=== PATIENT | male | born 1935 ===

== ENCOUNTER 2017-06-15 10:42 | Inpatient (IN) | payer MEDICARE ==
[~2017-06-15] VITALS: Ht 157.4 cm; Wt 70.5 kg
--- NOTE | ~2017-06-15 | PR ---
[place], [place] PROGRESS NOTE NAME: [facility]ARRO [id number] UNIT #: [id number] ROOM: 315 DOCTOR: STEVE KENNEDY MD BIRTHDATE: [birth year] DOS: 06/18/2017 CHIEF COMPLAINT: "I am not how do you say it paranoid, people are really trying to get me. I have a beautiful 65-year-old girl, I want to ." HISTORY OF THE VISIT: The patient was interviewed in the dining area. He once again continued to perseverate about going back to [place], stating that he has a girl, he is going to there. He also is stating that he is not paranoid that multiple people are trying to hurt him and stop him from doing things. He repeated himself in a course of a 10-minute conversation, probably 5 times. He is very much on edge and labile and very much paranoid. MENTAL STATUS: He is alert and oriented to person, place, but not time. Mood seems labile. Affect is inappropriate. He is very paranoid and delusional. He does have a hard time processing and short term memory is exceedingly poor. PLAN: The patient is becoming episodically noncompliant with his medicine. He has had several doses of the Risperdal successfully without any sedation, somnolence, extrapyramidal symptoms or tardive dyskinesia. I will first switch him to the Risperdal M-Tab 1 mg twice a day and attempt to load with Risperdal Consta 12.5 mg IM now. I will increase his Exelon patch from 9.5 to 13.3 mg a day, continue to look for alternative placements. At this point, I would look to a locked assisted living facility that has a memory care unit as he would be appropriate for them, discharge then when stable. STEVE KENNEDY MD CM:PNTRANS [id number] STEVE KENNEDY MD 06/19/17 0244 interface
--- NOTE | ~2017-06-15 | DS ---
[place], [place] DISCHARGE SUMMARY NAME: [facility]ARR[id number] UNIT #: [id number] ROOM: 315 DOCTOR: STEVE KENNEDY MD BIRTHDATE: [birth year] DOS: 06/24/2017 CHIEF COMPLAINT: "There is conspiracy against me. I hope you are not in on it." HISTORY OF PRESENT ILLNESS: This is an 82-year-old white male who was sent here on an involuntary basis from [facility]. The patient had called the police stating that he believed there were children in his neighborhood that were trying to break into his home and drug and kill him. 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 He was quite bizarre. Police brought him to [facility] to be evaluated. Once at [facility], they found him to be increasingly confused, paranoid and disjointed and felt inpatient hospitalization was warranted. During the early part of his first day here, the patient was very fixated on the conspiracy theory believing that he was taken forcibly from [place] and brought here against his will. The patient did exhibit extremely poor short-term memory and was admitted now to rule out organic factors to re-stabilize on medication and to determine what the least restrictive environment would be post-discharge. PAST MEDICAL HISTORY: Remarkable for hyperlipidemia, hypertension, osteoarthritis, prostate cancer and rosacea. SUMMARY OF THE HOSPITAL COURSE: The patient was admitted to the unit where he was extremely confused with very poor short-term memory. He was very perseverative and was very resistive to any type of intervention. He was started initially on Risperdal 0.5 mg twice daily. Initially, he complied with this, but very quickly became paranoid about the medication, stating that we were a part of conspiracy and we were attempting to drug him. After several days of taking the oral Risperdal, the patient began refusing his oral medications. At this point, he was loaded with Risperdal Consta 12.5 that day. After receiving the injection, the patient did have a lessening of his conspiracy theory and he once again resumed taking the oral medication. Because of the significant cognitive impairment, he was started simultaneously on Exelon patch 4.6 mg a day and Namenda 5 mg a day. Both of these were rapidly titrated upward to their maximum or near maximum dose with the Exelon being brought to its highest dose of 13.3 mg daily and Namenda to 15 mg daily. As he progressed in his hospital stay, the patient well still perseverative and repetitive, was much easier to redirect. He stopped talking about [place] and stop talking about a conspiracy theory. In fact on the day of discharge, the patient, who was pushing to leave here on a daily basis, actually voiced a desire to stay here longer as he reports liking it here and liking the food and the people here. The patient had improved sufficiently during his stay that it was felt that he would do well at an assisted living facility where his medications and meals would be provided for him and he would have supervision during the day. The patient was discharged then to [facility] in [place], [place]. MENTAL STATUS AT DISCHARGE: The patient was alert and oriented to person, place, but not necessarily time. Mood was strongly trending towards euthymia [place], [place] DISCHARGE SUMMARY NAME: JAMIN PIZARRO UNIT #: [id number] ROOM: 315 DOCTOR: STEVE KENNEDY MD BIRTHDATE: [birth year] and affect was much more appropriate. The paranoia that was so prominent upon admission had dissipated significantly. There were no auditory or visual hallucinations, no delusions. Short term memory still remained increasingly poor. 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 PLAN: The patient is to be admitted to [facility] [place], [place]. All of his prescriptions have been printed and will be sent with him. I will follow him upon his admission there. STEVE KENNEDY MD CM:NORIS [phone] STEVE KENNEDY MD 06/24/17 1156 interface
--- NOTE | ~2017-06-15 | PR ---
[place], [place] PROGRESS NOTE NAME: [id number] UNIT #: [id number] ROOM: 315 DOCTOR: HERBERT COLÓN,MY BIRTHDATE: [birth year] DOS: 06/23/2017 ROOM NUMBER: [id number]. CHIEF COMPLAINT: "I have a home in [place]." SUMMARY OF THE VISIT: The patient was interviewed in dining area after finishing his breakfast. The patient said he wants to be discharged home and does not want to go to assisted living because "I have a home in [place]." States he "feels great" and "why am I abnormal?" The patient asked many questions during interview today. Denies suicidal thoughts. MENTAL STATUS: The patient is alert and oriented to person and place. Mood is trending towards euthymia. Affect is more appropriate. The patient is too delusion and paranoid at times. There are no symptoms of yasmine or hypomania. There are no auditory or visual hallucinations. PLAN: We will increase Namenda from 5 mg b.i.d. to 10 mg q.a.m. and 5 mg at bedtime to augment the effectiveness of Exelon patch, continue Risperdal as before, engage in individual and li milieu activity with continued support as before. MY DO HERBERT STEVE KENNEDY MD CM:PNHOSSEIN [id number] MY HERBERT COLÓN 06/23/17 1338 interface
--- NOTE | ~2017-06-15 | PR ---
[place], [place] PROGRESS NOTE NAME: JAMIN PIZARRO UNIT #: [id number] ROOM: 315 DOCTOR: SHAYNE CAICEDO,IMTIAZ BIRTHDATE: [birth year] DOS: CHIEF COMPLAINT: "I'm doing okay." SUBJECTIVE: The patient is seen this morning in dining area. He had his breakfast, which he liked very much, readily engaged in conversation, somewhat confused that is why he is here. States that he is okay. He has been taking his medicines, tolerating well, still wants to go to [place] after his discharge from here and that he repeated several times. States that he slept good and he has no other questions at present. MENTAL STATUS EXAMINATION: The patient is alert, awake, oriented to person, place and approximate to time. Fair eye contact. Speech, lots of perseverations, repeating the same. Mood trending towards euthymia, still some paranoid themes. No yasmine or hypomania noted. PLAN: The patient needs further stabilization, so we shall continue his medicines, continue his care and try and engage him in li milieu as he is more stable. IMTIAZ BELLA MD CM:AMANDA [phone] IMTIAZ BELLA MD 06/21/17 1131 interface
--- NOTE | ~2017-06-15 | WRIGHTHP ---
[place], [place] PATIENT HISTORY AND PHYSICAL EXAM NAME: JAMIN PIZARRO UNIT #: [id number] ROOM: 315 DOCTOR: STEVE KENNEDY MD BIRTHDATE: [birth year] DOS: 06/16/2017 INITIAL PSYCHIATRIC EVALUATION. CHIEF COMPLAINT: "There's a conspiracy against me, I hope you are not in on it. HISTORY OF PRESENT ILLNESS: This is an 82-year-old white male who was sent here on an involuntary basis from [facility]. The patient had called the police stating that he believed that children in the neighborhood were trying to break into his home trying to drug and kill him. 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 Police brought him to [facility] to be evaluated. Since his admission here, he has been fixated on a conspiracy theory believing that he was in [place] and he was taken from [place] here against his will. Of note, the patient's short term memory is exceedingly poor and he is bordered on being increasingly verbally and physically combative, but is held it together for the most part and self redirects. He is admitted now to rule out physical issues to engage in individual and li milieu activity and then determining the appropriate placement post-discharge. PAST MEDICAL HISTORY: Remarkable for hyperlipidemia, hypertension, osteoarthritis, prostate cancer and rosacea. MENTAL STATUS: He is alert and oriented to person, place, and approximate to time. Mood seems labile. Affect inappropriate. He is very paranoid and delusional. Short term memory is exceedingly poor. DIAGNOSIS: Brief psychotic disorder, rule out major depression with psychotic features, rule out dementia. PLAN: I have started him already on Risperdal 0.5 mg twice daily. I will maintain this. Given the cognitive loss, I will start him on Exelon patch. Engage in individual and li milieu activity. surgical services assistant will reach out to family to determine what are post-discharge plans will be. [place], [place] PATIENT HISTORY AND PHYSICAL EXAM NAME: JAMIN PIZARRO UNIT #: [id number] ROOM: 315 DOCTOR: STEVE KENNEDY MD BIRTHDATE: [birth year] STEVE KENNEDY MD CM:ROBERT:PATIENT HISTORY AND PHYSICAL EXAMINATION 5 9 STEVE KENNEDY MD 06/16/17 09 interface
--- NOTE | ~2017-06-15 | PR ---
[place], [place] PROGRESS NOTE NAME: JAMIN PIZARRO UNIT #: [id number] ROOM: 315 DOCTOR: STEVE KENNEDY MD BIRTHDATE: [birth year] DOS: 06/22/2017 CHIEF COMPLAINT: "Hey, I need to get out of here. I have places to go to." SUMMARY OF THE VISIT: The patient was interviewed in the dining area where he was sitting eating breakfast. Once again, he was preoccupied with leaving here to go to [place]. He was able to be dissuaded more readily this morning and is not as fixated. Nurses report similarly. He does seem to be more redirectable than he had been previously upon admission. He is tolerating the current regimen of medicines well. MENTAL STATUS: He is alert and oriented to person, place, but approximate to time. Mood does seem to be trending towards euthymia finally. Affect is more appropriate. There are no symptoms of yasmine or hypomania. There are no auditory or visual hallucinations. He does remain delusional. PLAN: At the present time, I will renew his Ativan p.r.n. in case he requires intervention. I will increase the Namenda from 5 mg daily to 5 mg twice daily augmenting the effectiveness of the Exelon patch. Engage in individual and li milieu activity. Maintain the Risperdal, monitor and support returning to the least restrictive environment when stable. STEVE KENNEDY MD CM:PNTRANS [id number] STEVE KENNEDY MD 06/22/17 1119 interface
--- NOTE | ~2017-06-15 | PR ---
[place], [place] PROGRESS NOTE [id number] UN[facility] #: [id number] ROOM: 315 DOCTOR: HERBERT COLÓN,MY BIRTHDATE: [birth year] DOS: 06/19/2017 CHIEF COMPLAINT: "May be you are playing games with me." SUMMARY OF THE VISIT: The patient was interviewed in his room. He said "it's 6 o'clock, not 8." He believes that he had only been out of [place] not too long ago. He said he has a girlfriend here, her name is Angelica and he is going to her. When asked if we could have her phone number, he said he doesn't want to give her phone number because he has to ask her for permission first. The patient states he does not need help, he can do everything himself and that he could get all his meals from [employer]. The patient said that "they want to get my car." According to staff, the patient told them that "people are out to get him." MENTAL STATUS: He is alert and oriented to person and somewhat place, but not time. Mood seems labile. Affect is inappropriate. The patient is very paranoid and delusional. He does have hard time processing information still. Short term memory is exceedingly poor. PLAN: Due to episodically compliant, the patient was started on Risperdal M-Tab 1 mg b.i.d. yesterday and had a loading dose of Risperdal Consta 12.5 mg. He will have another Risperdal Consta 12.5 mg on 06/20/2017, continue Exelon patch 13.3 mg. We will continue to engage the patient in individual and group activity. Currently working on finding a placement for him. MY GODINEZ, DO STEVE KENNEDY MD CM:PNTRANS [id number] MY HERBERT DO 06/22/17 0916 interface
--- NOTE | ~2017-06-15 | PR ---
[place], [place] PROGRESS NOTE NAME: [id number] UNIT #: [id number] ROOM: 315 DOCTOR: HERBERT COLÓN,MY BIRTHDATE: [birth year] DOS: 06/17/2017 ROOM NUMBER: [id number]. CHIEF COMPLAINT: "[place]." SUMMARY OF THE VISIT: The patient was interviewed in the dining area as he sat in a Sparkle chair. He opened his eyes and quickly returned back to sleep. He received Ativan last night for increased agitation and aggression. Staff reports the patient said "you are trying to kill me" and "I hope you burn in hell for tarnishing my good name." Throughout the night, the patient believed he was still in [place] and does not want to return to [place]. MENTAL STATUS: Unable to assess due to his condition. PLAN: We will increase Risperdal 0.5 q.a.m. and 1 mg at bedtime, also increase Exelon patch to 9.5 mg daily, continue Namenda 5 mg daily. We will continue to engage the patient in individual and li milieu activity with the ultimate plan is to be discharged when the patient is psychiatrically stable. MY HERBERT, DO STEVE KENNEDY MD CM:PNHOSSEIN [id number] MAGALI GODINEZ DO 06/17/17 1225 interface
--- NOTE | ~2017-06-15 | DS ---
[place], [place] DISCHARGE SUMMARY NAME: JAMIN PIZARRO UNIT #: [id number] ROOM: 315 DOCTOR: STEVE KENNEDY MD BIRTHDATE: [birth year] DOS: 06/25/2017 ADDENDUM CHIEF COMPLAINT: "Where am I going, what is wrong with me?" SUMMARY OF THE VISIT: The patient was interviewed as he sat in the dining area, interacting with two of the li milieu workers. He stopped and engaged readily in conversation with me. He was rather perplexed and bewildered, not quite certain why he was in the hospital in the first place and where he was going. I discussed at length what led to his initial hospitalization, how he progressed during his stay and how the plan now is for him to at least temporarily if not permanently go to [facility]. He required a great deal of support and redirection, but in the end did nod in approval that this is probably the best for him. MENTAL STATUS: The patient is alert and oriented to person, place, but not necessarily time. Mood is strongly trending towards euthymia. Affect is more appropriate. There is no yasmine or hypomania. There are no auditory or visual hallucinations. No delusions, no paranoia. He does process slowly and his short term memory is exceedingly poor. DIAGNOSIS: As per the dictation of 06/24/2017. DISPOSITION: The same. I will follow him when he is admitted to [facility]. STEVE KENNEDY MD CM:DISCHARG [id number] STEVE KENNEDY MD 06/25/17 1712 interface
--- NOTE | ~2017-06-15 | CON ---
[place], [place] REPORT OF CONSULTATION NAME: JAMIN PIZARRO UNIT #: [id number] ROOM: 315 DOCTOR: DANIEL BONILLA ED.D (ALLI) BIRTHDATE: [birth year] DOS: 06/16/2017 HISTORY OF PRESENT ILLNESS: The patient is an 82-year-old male referred by Dr. Encinas for competency evaluation. At the present time, this patient is on the [facility] at [facility]. He states he is single and never been and has no children. His ddonlf-am-eyy is his durable power of workers compensation attorney for healthcare. 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 He cannot remember his family physician, but his medical history is pertinent for hypertension, osteoarthritis, coronary artery disease, rosacea. He is presently on Risperdal, Exelon, vitamin D, multivitamins, aspirin, Proscar, lisinopril, magnesium hydroxide and Geodon. This patient denies any substance abuse issues. He was awake, alert and oriented only to person. He was not oriented to place or time. He initially believed he was in [place]. He believed that it was year 2009 or 2011 and could not discern the year. He was clearly quite confused throughout the interview. His short and long his long-term memory are impaired. I spoke with hhusmd-am-rke who is his durable power of workers compensation attorney for healthcare and she indicated that approximately 1 year ago, his memory started to fail. This was shortly after that time his brother , but his memory has progressively gotten worse throughout the year. He became quite delusional recently, was sent to [facility] and then [facility]. In my opinion, this patient is clearly not competent to make informed healthcare decisions and all decisions should be made by his healthcare power of workers compensation attorney who is his [id number]-cmd. DIAGNOSES: 1. Brief psychotic disorder. 2. Major neurocognitive disorder -- Alzheimer disease. RECOMMENDATIONS: In my opinion, all decision should be made by his healthcare power of workers compensation attorney. Thank you very much for this consult. DANIEL BONILLA ED.Bernardo CM:CONSTR:REPORT OF CONSULTATION [id number] 06/16/17 2148 interface STEVE ENCINAS MD
--- NOTE | ~2017-06-15 | PR ---
[place], [place] PROGRESS NOTE NAME: JAMIN PIZARRO [facility]AD[facility] CLINICT #: [id number] UNIT #: [id number] ROOM: 315 DOCTOR: SHAYNE CAICEDO,IMTIAZ BIRTHDATE: [birth year] DOS: CHIEF COMPLAINT: "Some kids were after me." SUBJECTIVE: The patient is 82-year-old male admitted with brief psychotic disorder and he was started on Risperdal. Today seen in his room. 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 MENTAL STATUS EXAMINATION: The patient is alert, oriented to person, place and approximate to time. Fair eye contact. Lots of perseverations, repeating the same. Labile mood, still paranoid about kids trying to harm him. No yasmine or hypomania at present. PLAN: The patient needs further stabilization. We shall continue his medicines and shall try to engage him in li milieu as he is more stable. IMTIAZ BELLA MD CM:AMANDA [id number] IMTIAZ BELLA MD 06/20/[id number] interface
--- NOTE | 2017-06-15 07:40 | NUR ---
DR. KENNEDY REVIEWED REFERALL WITH CHARGE NURSE, STATES HE WILL ACCEPT PT W/ DX: BRIEF PSYCHOTIC DISORDER.
--- NOTE | 2017-06-15 10:35 | NUR ---
PINK SLIP AND PRECERT INFORMATION RECEIEVED VIA FAX FROM . '. THIS NUSRE CALLED AND SPOKE TO DEMOND FIGUEROA, MADE AWARE ALL INFORMATION HAS BEEN RECIEVED AND THEY CAN SET UP TRANSPORT. [place] STATES SHE WILL HAVE NURSE CALL NURSE TO NURSE REPORT PRIOR TO TRANSPORT. THIS NURSE REQUESTED PT'S PHARMACY INFORMATION, [place] WILL HAVE NURSE CHECK AND LET US KNOW.
[2017-06-15] MEDS ORDERED: ZESTRIL20 MG PO (11:12)
[2017-06-15] MEDS ORDERED: PROSCAR5 M1 PO (11:13)
[2017-06-15] MEDS ORDERED: ASPIRIN CHEWABL81 MG PO (11:13)
[2017-06-15] MEDS ORDERED: THERAGRAN-M PR1 EACH PO (11:14)
[2017-06-15] MEDS ORDERED: VITAMIN D32000 UNIT PO (11:14)
[2017-06-15] MEDS ORDERED: SUPER B WITH V1 EACH PO (11:16)
[2017-06-15] MEDS ORDERED: CALCIUM 1,0001 EACH PO (11:18)
--- NOTE | 2017-06-15 11:40 | NUR ---
NURSE TO NURSE REPORT RECIEVED FROM MANOLO AT [facility]. MANOLO STATES PT IS UNABLE TO STATE PHARMACY. PER MEDICATION CLAIM HISTORY IN [employer], PT HAS FILLED SCRIPTS AT [facility] IN [place] [facility] - PER TECHINICIAN AT PHARMACY PT HAS FILLED TWO SCRIPTS IN 2016 FOR A 90 DAY SUPPLY, LISINOPRIL AND SODIUM CHLORIDE. NO OTHER SCRIPTS FOUND.
--- NOTE | 2017-06-15 11:43 | NUR ---
SPOKE TO DR. KENNEDY, MADE AWARE PER HOSPITAL RECORDS AND PT'S PHARMACY THERE ARE NO PSYCHIATRIC MEDICATIONS LISTED. NEW ORDERS RECEIVED, READ BACK AND VERIFIED.
--- NOTE | 2017-06-15 13:31 | NUR ---
NURSE FROM [facility] PROVIDED PT'S ECLDEC-SB-UXE'S NAME AND PHONE NUMBER: ANJELICA PIZARRO, . THIS NURSE SPOKE WITH ANJELICA, SHE STATES HER AND JAMIN WERE BROTHERS. ANJELICA STATES HER HAS THIS YEAR. ANJELICA ABLE TO REPORT THAT PT'S MOTHER HAD MULTIPLE HERNIA SURGERIES AND ULTIMATELY OF PERITONITIS. PT'S FATHER PASSED FROM COLON CANCER THAT METASTASIZED. ANJELICA REPORTS PT "IS A VERY PRIVATE PERSON. 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 HE KEEPS TO HIMSELF. HE DOESN'T CALL ME, I CALL HIM EVERY ONCE IN A WHILE TO CHECK UP ON HIM." SHE STATES HE HAD BEEN SEEING A RENAL DOCTOR, BUT QUIT GOING. SHE ALSO STATES HE HAS BEEN SHOWING S/S MEMORY LOSS, POSSIBLE DEMENTIA, BUT HAS NOT BEEN DX WITH DEMENTIA. SHE STATES THESE ISSUES HAVE BEEN GRADUALLY WORSENING OVER THE LAST 6 MONTHS. PHONE NUMBER TO UNIT PROVIDED FOR ANJELICA.
--- NOTE | 2017-06-15 13:37 | NUR ---
PER NURSE AT [facility], PT'S PRIMARY CARE DOCTOR IS DR. ALVAREZ HAND. CALL PLACED TO DR. HAND'S OFFICE, GEOSCIENCES ASSOCIATE PROFESSOR STATES DR. HAND IS NO LONGER IN PRACTICE. PER THEIR SYSTEM PT HAS NOT BEEN SEEN IN THAT OFFICE SINCE 2013 FOR A FLU SHOT. PER MEDICATION CLAIM HISTORY SCREEN, PT WAS PRESCRIBED SODIUM CHLORIDE SCRIPT BY A DR. YIP ([phone]), DR. YIP IS A PART OF [facility]" , CALL PLACED TO THIS OFFICE. STAFF REPORTS HE HAD BEEN SEEN THERE AFTER BEING REFERRED BY HIS PCP DR. FRANCISCO GARCIA ([phone]). STAFF AT [facility] REPORT HE WAS SEEN THERE 02/10/17 AND WAS SUPPOSED TO COME BACK FOR FOLLOW UP BUT "QUIT COMING BECAUSE HE GOT MAD. HE SAYS HE HAS TOO MANY DOCTORS". STAFF FAXED REPORT FROM LAST VISIT. CALL PLACED TO DR. GARCIA'S OFFICE, THEY CONFIRM IS A PATIENT OF THEIRS. HE WAS LAST SEEN IN THEIR OFFICE IN 2016, THEY WILL FAX HISTORY TO UNIT.
--- NOTE | 2017-06-15 13:54 | NUR ---
JAMIN PIZARRO a 82 year old M admitted via stretcher from the [facility] ED as a emergency 72 hr. hold admission. Arrived on unit at 1354. ALLERGIES: SULFA ATB. Vital signs are: 97.6-93-20 136/81. 93% ROOM AIR The client signed the following forms with stated understanding: Authorization For The Release of Medical Information, Clothing List, Consent and Release Forms/Receipt of Rights, Acknowledgement of Advance Directive Information, Behavioral Health Consent Form, and Informed Consent of Medications. [facility] A search was conducted and hazardous articles were removed. Client was oriented to the unit. KIMBERLEE GARBER
[2017-06-15 14:08] VITALS: BP 136/81
--- NOTE | 2017-06-15 14:10 | NUR ---
CALL PLACED TO [phone] FOR HOSPITALIST NUMBER ONE, SPOKE TO DR. CARTWRIGHT, MADE AWARE OF CONSULT FOR MEDICAL MANAGEMENT. MADE AWARE MEDICAL HX AND MED REC COMPLETE FOR REVIEW. DR. CARTWRIGHT STATES "OK THANK YOU."
[2017-06-15 14:36] VITALS: BP 136/81
--- NOTE | 2017-06-15 14:58 | NUR ---
PHYSICAL THERAPY Nursing screen recieved. No pertinent patient information in chart aT this time. Please order PT if appropriate. Thank you. Flora Arita,PT
--- NOTE | 2017-06-15 15:00 | NUR ---
JAMIN IS ALERT AND ORIENTED TO SELF WITH CONFUSION. SEVERE DEFICITS IN SHORT TERM MEMORY NOTED. RESPIRATIONS EASY AND EVEN ON ROOM AIR. MOOD IS ANGRY/IRRITABLE AND ANXIOUS. AFFECT IS APPROPRIATE. SPEECH IS COHERENT, ABLE TO VERBALIZE NEEDS, RAPID AT TIMES WITH FLIGHT OF IDEAS. PT DENIES SI/HI, STATES "NO. I LOVE MYSELF TOO MUCH.". PT DENIES HALLUCINATIONS, NO RESPONSE TO INTERNAL STIMULI NOTED. PT PRESENTS WITH PARANOID DELUSIONS, PT REPEATEDLY STATES HE HAS NO IDEA WHY HE IS IN THE HOSPITAL. HE STATES "I'M NOT CRAZY. THEY MUST THINK I'M NUTS IF THEY SENT ME HERE FOR PSYCHIATRY." PT STATES "THIS STORY IS TRUE. I'M NOT MAKING IT UP. HERE'S WHAT HAPPENED, THERE'S AN OLDER MAN IN [place] AND HE'S CONTROLLING ALL THESE YOUNG KIDS. 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 THEY KILL PEOPLE AND DUMP THEM IN A DEEP WELL." PT REPORTS "THESE KIDS, THEY KILLED MY GIRLFRIEND'S BROTHER. THE AUDITOR MEDICAL CLAIMS, HIS NAME IS RACHEAL, HE'S TRYING TO HELP ME. HE'S MY GIRLFRIEND'S UNCLE." PER [place] [employer] THERE IS NO OFFICER BY THE NAME OF RACHEAL WORKING THERE. PT STATES HE BELIEVES THIS GANG OF CHILDREN ARE HIS FORMER STUDENTS. HE ALSO REPORTS HIS GIRLFRIEND IS A FORMER STUDENT WHO HE MET AT HER BROTHER'S AND SHE IS 60 YEARS OLD. A FEW MOMENTS LATER HE STATES HE MET HIS GIRLFRIEND WHILE HE WAS WALKING IN [place] AND THAT SHE IS 50 YEARS OLD. PT'S STORY HAS CHANGED MULTIPLE TIMES T/O THE INTERVIEW. NO DISTRESS NOTED. FALLING STAR PROGRAM INITIATED D/T FALL RISK SCORE. UNSTEADY GAIT. Q15 MIN MONITORING CONTINUES. NO DISTRESS NOTED. REFER TO U ADMISSION ASSESSMENTS FOR FURTHER DOCUMENTATION.
--- NOTE | 2017-06-15 16:03 | NUR ---
DR. BLUNT HERE TO SEE PT AT THIS TIME. REASON FOR ADMISSION AND PT'S HX REVIEWED WITH DR. BLUNT.
[2017-06-15 16:24] LABS: BILIRUBIN NEGATIVE (NEGATIVE); BLOOD TRACE-INTACT (NEGATIVE); CLARITY CLOUDY (CLEAR); COLOR YELLOW (YELLOW); GLUCOSE NEGATIVE (NEGATIVE); KETONE NEGATIVE (NEGATIVE); LEUKO ESTERASE NEGATIVE (NEGATIVE); NITRITE NEGATIVE (NEGATIVE); UROBILINOGEN 0.2 E.U./dl (0.2-1.0)
[2017-06-15 16:33] LABS: BACTERIA 4+
[2017-06-15 16:43] LABS: BASO % 0.8 % (0.0-1.0); EOS # 0.1 10*3/uL (0.0-0.4); EOS % 1.8 % (1.0-4.0); HEMATOCRIT 47.1 % (42.0-52.0); HEMOGLOBIN 16.1 g/dl (14.0-18.0); LYMPH # 0.9 10*3/uL (1.3-4.4); LYMPH % 17.2 % (27.0-41.0); MEAN CELL VOLUME 98.1 fl (80.0-94.0); MEAN CORPUSCULAR HGB 33.5 pg (27.0-31.0); MEAN CORPUSCULAR HGB CONC 34.2 g/dl (33.0-37.0); MEAN PLATELET VOLUME 8.6 fl (9.6-12.3); MONO # 0.6 10*3/uL (0.1-1.0); MONO % 11.5 % (3.0-9.0); NEUT # 3.4 10*3/uL (2.3-7.9); NEUT % 68.5 % (47.0-73.0); PLATELET COUNT AUTOMATED 268 10*3/uL (130-400); RED CELL DISTRI WIDTH 12.6 % (0-14.5)
--- NOTE | 2017-06-15 16:54 | NUR ---
DR. CARTWRIGHT HERE TO SEE PT AT THIS TIME. UPDATED ON URINALYSIS RESULTS +4 BACTERIA, TRACE BLOOD, NO NEW ORDERS AT THIS TIME.
[2017-06-15 16:58] LABS: ALBUMIN 3.8 gm/dl (3.1-4.5); ALKALINE PHOSPHATASE 81 U/L (45-117); BUN 10 mg/dl (7-24); CHLORIDE 100 mmol/L (98-107); POTASSIUM 3.9 mmol/L (3.5-5.1); SGOT/AST 56 IU/L (3-35); SGPT/ALT 44 U/L (12-78); SODIUM 136 mmol/L (136-145); TOTAL PROTEIN 7.5 gm/dL (6.4-8.2)
--- NOTE | 2017-06-15 21:00 | NUR ---
EXTENSIVE 1-[address] AND LT MEMORY GAPS. VERY FIXATED ON WATCH, SHOES, WANTING TO PLACE INSOLES IN HIS SHOES. PT CURRENTLY THINKS THE YEAR IS 2013 AND THAT HE IS IN [place], [place] AGITATED THAT HIS ENTIRE VACATION WILL BE SPENT IN HERE, PT BECOMING HIGHLY AGITATED STATING THAT HIS CAREER WILL BE RUINED IF ANYONE FINDS OUT HE IS IN THE [place]. PT GAIT UNSTEADY AT THIS TIME FREQUENTLY REMOVING BODY ALARM AND STANDING. BECOMING INCREASINGLY AGITATED, UNABLE TO REORIENT TO PLACE AND TIME. PRN PO ATIVAN ADMINISTERED
[2017-06-15 21:36] VITALS: BP 147/79
--- NOTE | 2017-06-15 22:47 | NUR ---
PT CLIMBING OUT OF BED VERY DISORIENTED, YELLING AT STAFF "WHY ARE YOU DOING THIS TO ME, I'M GETTING OUT OF HERE" PT CLIMBED OUT OF RIGHT SIDE OF BED AND STUMBLED INTO WALL BEING CAUGHT BY THIS NURSE. UNABLE TO REORIENT PATIENT TO REALITY. PT PLACED IN MANOJ CHAIR CLOSE TO NURSES FOR INCREASED OBSERVATION.
--- NOTE | 2017-06-16 00:49 | NUR ---
PT CLIMBING OUT OF BED SOUNDING ALARMS. PT ASSISTED TO TOILET. PT THEN ATTEMPTED TO RUN WITH PANTS AROUND ANKLES ASKING STAFF " PLEASE DONT DO IT, PLEASE DONT HURT ME, I JUST WANT TO GO TO BED" PT REASSURED FOR SAFETY AND RETURNED TO BED AT THIS TIME
--- NOTE | 2017-06-16 00:59 | NUR ---
24 HR chart check completed.
--- NOTE | 2017-06-16 05:17 | NUR ---
SENDING FACILITY OBTAINED AUTH. BARAK APPROVED THROUGH 06/19/17 WITH REVIEW 06/19/17.
--- NOTE | 2017-06-16 07:01 | NUR ---
PT REFUSING AM LABS, ALERT TO PERSON ONLY UNABLE TO PRESENT REALITY. REFUSING TO GET IN TO CHAIR.
--- NOTE | 2017-06-16 08:10 | NUR ---
PHYSICAL THERAPY Nursing screen received. Orders also received. Thank you. Flora Arita,PT
--- NOTE | 2017-06-16 08:49 | NUR ---
06/15/17 Afternoon Group Emigdio Bowen Patient was admitted to floor just shortly after group began. Patient came to group at the end. Talk to patient about groups and what we do. Patient stated "I don't do things like that. The only thing I like to do is what TV." AC will encourage patient to attend all groups
[2017-06-16 08:58] VITALS: BP 140/78
[2017-06-16 10:08] LABS: THYROID STIM HORMONE (HS) 0.71 uIU/ml (0.358-4.75)
[2017-06-16 11:01] LABS: VITAMIN D, 25-HYDROXY 32.2 ng/mL (30-100)
--- NOTE | 2017-06-16 11:25 | NUR ---
PHYSICAL THERAPY PAtient with public health social worker and family in meeting. Thank you for this referral. Flora Arita,PT
--- NOTE | 2017-06-16 13:26 | NUR ---
Goals,Exercise & Wreaths Patient was in attendence for group but refused to participate. Patient states he doesnt do "those things." Patient talked with staff, mainly milieu. Encouraged patient throught group to join but continued to refuse
--- NOTE | 2017-06-16 13:30 | NUR ---
OT EVALUATION COMPLETED. OT MINIMAL COMPLEXITY DETERMINED BY OT EVAL AND CHART REVIEW. OT EVALUATION LATE ENTRY, FORGOT TO ENTER AFTER COMPLETION ON 06/16/17.
--- NOTE | 2017-06-16 14:40 | NUR ---
Dr. Encinas gave approval for Dr. Kelly consult for competency. DEMOND let Nurse Urszula know and a consult and phone call was put in to Dr. Kelly.
--- NOTE | 2017-06-16 14:52 | NUR ---
PHYSICAL THERAPY PAtient evalauted on 3, full evaluation to follow. Contineu with PT as per plan of care with fall, unit three and acute debility precautions. PAtient is moderate complexity via chart review, tests and evaluation: 20595. Home with home health versus SNF for impaired mobility. Thank you for this referral. Flora Arita,PT
--- NOTE | 2017-06-16 15:18 | NUR ---
Painting [place] Ornaments Patient was in attendence for group but did not participate. Again I encouraged patient to participate but he refuses each time saying he doesnt do "stuff like that." Patient sat at another table 1:1 with a milieu
--- NOTE | 2017-06-16 17:05 | NUR ---
PRN 1 MG PO ATIVAN GIVEN FOR INCREASED ANXIETY, PT HARD TO REDIRCT, DELUSIONAL STATEMENTS THNKS HE LIVES IN [place], THNKS [place] STAFF IS POISONING HIM, HE PUT CURSES ON THE STAFF AND MILEU, AND ALL THE STAFF'S FAMILILES. DR BONILLA UP TO EVALUATE FOR COMPETENCY. PT IS INCOMPETANT PER DR BONILLA. JAIME NOTIFIED THIS NURSE PT SISTER ANJELICA IS POA AND WILL FAX PAPERWORK TOMORROW TO THIS [facility]
--- NOTE | 2017-06-16 17:40 | NUR ---
ANGUS AWARE OF PT UA RESULTS
[2017-06-16 20:00] VITALS: BP 140/69
--- NOTE | 2017-06-16 20:50 | NUR ---
PT INCREASING AGITATED, SCREAMING AT NURSING STAFF, "YOU'RE TRYING TO KILL ME, I HOPE YOU BURN IN HELL FOR TARNISHING MY GOOD NAME". PT REMOVED FROM DINING ROOM. UNABLE TO REORIENT PT PT PLACE AND TIME. PRN IM ATIVAN ADMINISTERD. PT WALKED THROUGH DEEP BREATHING EXERCISES.
--- NOTE | 2017-06-16 21:30 | NUR ---
PT CONITNUES TO BE AGITATED AT THIS TIME, PT PROVIDED FOOR FLUIDS, REPOSITING AND TOILITING. PT POCKETING MEDS IN MOUTH AT HS MED PASS, HIDDEN UNDER TONGUE. PT GIVEN ADDITIONAL GLASSES OF WATER. MEDICATIONS SWALLOWED. PRN IM ATIVAN INEFFECTIVE. PROVIDED DECREASED STIMULATION IN QUIET ROOM WITH INCREASED OBSERVATION AT THIS TIME.
--- NOTE | 2017-06-16 22:00 | NUR ---
PT INCREASING IN AGITATION AND CONFUSION "I DONT WANT TO GO BACK TO [place], I WANT TO STAY IN [place]". UNABLE TO REORIENT OR CALM PT WITH 1-1, DEEP BREATHING EXERCISES INEFFECTIVE. PRN ZELDADON ADMINISTERED
--- NOTE | 2017-06-16 22:59 | NUR ---
SLIGHT DECREASE IN AGITATION AND COMBATIVENESS PT REMAINS IN [place] CHAIR FOR SAFETY ACROSS FROM NURSES STATION.
--- NOTE | 2017-06-17 06:57 | NUR ---
PT SLEPT 5 HOURS WITH FEW INTURRUPTIONS. PT CONTINENT AND INCONTINENT OF URINE. HYGIENE CARE PROVIDED.
--- NOTE | 2017-06-17 06:57 | NUR ---
24 HR chart check completed.
--- NOTE | 2017-06-17 07:29 | NUR ---
Ivania spoke with pt. williams Thomas who states she is pt's poa and will fax a copy of the paperwork today to the unit. IVANIA informed Nurse Urszula of this. Martha is requesting that referrals be sent out to [place] places so that pt. does not return directly to his home alone.
[2017-06-17 08:00] VITALS: BP 139/67
--- NOTE | 2017-06-17 08:36 | NUR ---
DEMOND spoke with Nurse Monterroso in regards to pt MARIA GUADALUPE faxing poa paperwork today and to make sure that poa gives verbal consent for tx due to pt. being admitted on a "pink slip".
--- NOTE | 2017-06-17 08:41 | NUR ---
Occupational Therapy order written 06/15/17 but not received. Nursing screen completed 06/17/17 when order discovered. OT evaluation will be completed this date as patient able. Caro Polk OTR/L
--- NOTE | 2017-06-17 09:25 | NUR ---
Occupational Therapy offered this date. Patient reported in a firm manner "please leave me lone". OTR will attempt at a later time. Caro Polk OTR/L
--- NOTE | 2017-06-17 10:11 | NUR ---
pt Jessa states that she will bring the pattie paperwork tomorrow at 12:30 when she and pt. nephew will be here to visit and meet with the DEMOND.
--- NOTE | 2017-06-17 10:11 | NUR ---
ANGUS NEFF ON UNIT TO SEE PATIENT
--- NOTE | 2017-06-17 10:53 | NUR ---
PHYSICAL THERAPY Jamin seen this AM 1:1 for his therapy treatment. Pt said NO and please leave, didnot want his therapy gait. JAMIN ENNIS MATH COACH.
--- NOTE | 2017-06-17 11:24 | NUR ---
[place] completed and faxed to [facility]. Sw sent out referrals to: Josep oliveira [facility], Josep oliveira [facility], Bl[facility] [place] and Joon of [place]. SW also sent out referrals to [place] if pt. would need ST SNF stay. [place] were sent out to: Trisha davis/[facility], LETICIA Hart, Audrey Hutchins of [facility], and [facility].
--- NOTE | 2017-06-17 11:54 | NUR ---
SW attempted to meet with pt. pt. irritable and said "no I don't want to talk".
--- NOTE | 2017-06-17 12:00 | NUR ---
Dana Hart states "We will forward it to [facility]" for possible admission per Domingo Velasquez.
--- NOTE | 2017-06-17 13:31 | NUR ---
Goals,Exercise and David Craft Patient was in attendence but refused to participate. Patient stated "You're just trying to trick me." x3 when asked to participate. Patient sat at table with group but was aggitated because he wanted to go home. Unable to redirect patient
--- NOTE | 2017-06-17 13:53 | NUR ---
PATIENT ALERT WITH CONFUSION. RESPIRATIONS NONLABORED. NO RESPIRATORY DISTRESS NOTED. MEMORY DEFICITS OF ST/LT MEMORY. PATIENT NOOD ANGRY, IRRITABLE, AND ANXIOUS. SUSPICIOUS AFFECT. THOUGHT PROCESS CONFUSED. PATIENT DELUSIONAL AT TIMES AND STATES THAT STAFF IS "GOING TO KILL ME". NO HALLUCINATIONS OR DELUSIONS. NO HOMICIDAL OR SUICIDAL IDEATIONS. PATIENT AGITATED, RESTLESS, AND DEMANDING AT TIMES. PATIENT YELLING OUT AT TIMES AND WHEN APPROCHED BY STAFF PATIENT FORGETTING WHY HE WAS YELLING. CONTINENT OF BOWEL AND BLADDER. PATIENT AMBULATORY TO BATHROOM. APPETITE FAIR. PATIENT IN GERICHAIR AND REPOSITIONED FOR PRESSURE RELIEF AND COMFORT. PATIENT WITH COGNITIVE IMPAIRMENT AND NEW ORDERS FOR MEDICATIONS GIVEN TODAY. NAMENDA 5MG Q DAY, RISPERDAL 1MG QHS, AND RISPERDAL 0.5MG Q DAY. CONTINUES FALL RISK WITH Q 15 MINUTE CHECKS MAINTAINED. SEE [facility] FLOW SHEET FOR SPECIFIC MONITORING
--- NOTE | 2017-06-17 14:00 | NUR ---
Patient declined Occupational Therapy evaluation this pm stating that he was too tired. OTR will attempt at a later date. Caro Polk OTR/Shantal
--- NOTE | 2017-06-17 14:05 | NUR ---
Rec'd call from Gloria Lucero at [facility] who states that she does have bed possibly available if the person doesn't take it tomorrow. DEMOND will discuss with williams tomorrow this possibility and will give her the number for a tour if she wants it.
--- NOTE | 2017-06-17 19:41 | NUR ---
TONE RAHMAN WITH VERBAL CONSENT FOR VOLUNTARY ADMISSION TO [facility] AND CONSENT FOR PHOTOGRAPHS. VERIFIED/WITNESSED WITH 2 NURSE TELEPHONE ORDER
[2017-06-17 20:00] VITALS: BP 138/69
--- NOTE | 2017-06-18 01:32 | NUR ---
MEDICATION COMPLIANT. ALERT TO PERSON. PLEASANTLY CONFUSED. PT ASKED IF STAFF WAS PLAYING A GAME WITH HIM ON MULTIPLE OCCASSIONS. WHEN ASKED ABOUT THIS GAME PT STATED "ARE YOU PLAYING A PRANK ON ME". EXPLAINED TO PT WHAT WAS GOING ON AND ATTEMPTED TO REORIENT INEFFECTIVE. NO COMBATIVENESS NOTED. NO HALLUCINATIONS OR DFELUSIONS NOTED. NON COMPLIANT WITH BED/BODY ALARMS. PT WILL UNHOOK, TURN OFF, AND UNCLIP ALARMS TO GO TO THE BATHROOM BY HIMSELF. EDUCATION PROVIDED ON ON MEDICATIONS AND HOW TO PULL THE ALARM FOR HELP. Q15 MINUTE SAFETY CHECKS MAINATINED. FALL SAFETY MAINTAINED. SEE [facility] FLOWSHEET FOR SPECIFIC MONITORING.
--- NOTE | 2017-06-18 07:20 | NUR ---
Patient approached for Occupational Therapy evaluation this am. He was seated at edge of bed and continued to repeat "get out of here". He was clearly disoriented to place and unable to be reoriented. OTR will attempt at another time. Caro Polk OTR/Shantal
--- NOTE | 2017-06-18 07:26 | NUR ---
pt slept 8 hours this shift with 3 interruptions to use restroom. no s/s of distress noted. no c/o pain. see [facility] flowsheet for specific monitoring.
[2017-06-18 08:58] VITALS: BP 132/71
--- NOTE | 2017-06-18 09:27 | NUR ---
JAMIN IS ALERT AND VOICING PARANOID DELUSIONS THIS MORNING UPON INTERACTIONS. EYE SCANNING NOTED DURING CONVERSATION. THIS RN WALKED INTO ROOM, INTRODUCED SELF, AND PATIENT REPLIED "YOU'RE ANOTHER ACTRESS I SEE." PATIENT VERBALIZED HE THINKS EVERYONE IS TRYING TO "TAKE MY CONDO" AND "OUT TO GET ME." EMOTIONAL SUPPORT PROVIDED WITH NO EFFECT. PRESENTING REALITY ONLY AGITATED JAMIN MORE. REFUSED MEDICATIONS AFTER MULTIPLE ATTEMPTS MADE, STATES "GET THOSE AWAY FROM ME, I'M NOT TAKING ANYTHING YOU GIVE ME. I DON'T KNOW WHAT THOSE ARE OF WHAT YOU'RE TRYING TO GIVE TO ME." MEDICATION EDUCATION PROVIDED WITH NO EFFECT. PATIENT PUSH MED CUP AWAY FROM HIM. PERSONAL SPACE GIVEN AT THIS TIME. PATIENT RESTING IN BED AT THIS TIME. RESPIRATIONS EASY AND EVEN ON ROOM AIR.
--- NOTE | 2017-06-18 10:17 | NUR ---
PHYSICAL THERAPY Jamin was seen this AM 1:1 for his therapy session, Pt was supine in bed. Jamin ask me how did i get in here and to leave, Pt not wanting his therapy no gait and just leave. JAMIN ENNIS STOCK DIGGER.
--- NOTE | 2017-06-18 11:23 | NUR ---
Goals,Exercise & [place] Trivia Patient did not attend group. Patient was in his room and when patient was encouraged to come to group patient refused stating he wanted his breakfast first. Patient encouraged to join after breakfast,patient did not
--- NOTE | 2017-06-18 12:02 | NUR ---
SW rec'd call from [facility], they cannot meet the pt's needs.
--- NOTE | 2017-06-18 12:29 | NUR ---
POA IN AT THIS TIME AND STATES OK TO GIVE RISPERDAL CONSTA INJECTION, WITNESSED BY DEMOND SAINZ.
--- NOTE | 2017-06-18 12:36 | NUR ---
Met abisai pt, Carlotta and poa and nephew for family session. pt.. remains paranaoid and states "Those kids were tearing up my house, this place is a hoax". pt. pattie gave permission for an IM of risperdol for pt. due to pt. refusing to take mned's, feeling paranaoid and that "I am being drugged". SW asked that items from lock box be brought up to unit., so that poa can get the keys out to pt's home in order for poa to get in check on pt's condo and get some clothes to bring down for pt.
--- NOTE | 2017-06-18 12:39 | NUR ---
Gloria Dupree called and asked if pt poa interested in their facility, states that may have one apt. open if so. SW to call Gloria and let her know fanny because they have another candidiate for possible admission. SW will discuss with family members before they leave after their visit today.
--- NOTE | 2017-06-18 13:08 | NUR ---
RISPERDAL CONSTA 12.5MG IM ADMINISTERED IN RIGHT DELTOID AT THIS TIME. PT TOLERATED INJECTION WELL AND DENIES ANY PAIN. EATING LUNCH IN DINNING ROOM AT THIS TIME.
--- NOTE | 2017-06-18 13:41 | NUR ---
DEMOND met with pattie again and discussed placement options. Gave poa address and phone number to [facility], who at this point in time is the only place that has called and may have an opening. pattie did take pt's keys with Deangelo, Kitchen Help Handyman witjuanessing it and will bring pt. some of his belongings. poa and pt nephew both upset in regards to his decline in mnetal status but understand that pt has a diagnosis of Dementia and the paranoia may or may not go away.pattie to tour [facility] and call DEMOND with her thoughts about placement there.
[2017-06-18 20:00] VITALS: BP 148/68
--- NOTE | 2017-06-18 20:23 | NUR ---
PT TEMP CHECKED AND WAS 100.2. PT SITTING IN A WARM DININGROOM. REMOVED PT AND HAD HIM SIT IN A COOLER ROOM. RECHECKED TEMP WITH RESULTS OF 99.3. NURSING SURVEY ENGINEER CALLED IN TO UNIT AND WAS UPDATED ON ELEVATED TEMP. CALLED RESIDENT SPECIAL EFFECTS TECHNICIAN NUMBER AND UPDATED DR ON TEMP RESULTS. DR STATED HE WOULD PUT IN AN ORDER FOR LABS IN THE AM. WILL MONITOR ELEVATEMP AND NOTIFY DR IF ANY FURTHER CHANGES.
--- NOTE | 2017-06-18 20:46 | NUR ---
PRN TYLENOL GIVEN FOR ELEVATED TEMP. PT UP AD NEFTALI WITH A WHEELED WALKER. ALERT AND ORIENTED TO PERSON ONLY. PLEASANTLY CONFUSED. NO PARANOIA NOTED AT THIS TIME. SITTING IN DININGROOM WAITING ON FOOTBALL GAME TO START. FLUID INTAKE OF 240ML AT THIS TIME. NO S/S OF DISTRESS NOTED. NO C/O PAIN. WILL CONTINUE TO MONITOR ELEVATED TEMP AND FOR CHANGE IN CONDITION.
--- NOTE | 2017-06-18 21:57 | NUR ---
RECHECK TEMP WITH RESULTS OF 98.9 T. PT ON KNEES NEXT TO FOOT OF BED. PRAYING. THIS NURSE TALKED TO PT AND PT STATED HE PRAYS TO [facility] EVERY DAY FOR OVER 20 YEARS BECAUSE THEY HELPED HIS NIECE AND NEPHEW. PT STATED PEOPLE ARE OUT FOR HIM BECAUSE HE HAS A PLANE TICKET FOR [employer] AND A GROUP OF PEOPLE HAD TICKETS BUT THEY NEEDED ONE MORE AND THEY WANTEED HIS. WILL CONTINUE TO MONITOR TEMP THROUGH OUT THE NIGHT.
--- NOTE | 2017-06-19 00:39 | NUR ---
RECHECK TEMP WITH RESULTS OF 97.9. NO S/S OF DISTRESS NOTED. NO C/O PAIN.
--- NOTE | 2017-06-19 00:47 | NUR ---
24 HR chart check completed.
[2017-06-19 05:33] LABS: BUN 13 mg/dl (7-24); CHLORIDE 100 mmol/L (98-107); CREATININE 0.57 mg/dL (0.70-1.30); POTASSIUM 3.4 mmol/L (3.5-5.1); SODIUM 133 mmol/L (136-145)
--- NOTE | 2017-06-19 05:50 | NUR ---
PT SLEPT APPROXIMATELY 6 HOURS UNINTERRUPTED THIS SHIFT. FALL PRECAUTIONS MAINTAINED. Q15 MINUTE SAFETY CHECKS MAINATINED. ALERT TO PERSON WITH CONFUSION NOTED. ANXIOUS AT TIMES. PARANOID THAT PEOPLE ARE OUT TO GET HIM AND TAKE A PLANE TICKET TO [place] FROM HIM. INTERACTIVE WITH STAFF. RESTLESS AT TIMES. NO FURTHER ELEVATED TEMPS NOTED. SEE [facility] FLOWSHEET FOR SPECIFIC MONITORING. PLAN IS TO CONTINUE WITH CURRENT TREATMENT PLAN AND ENCOURAGE PARTICIPATION IN GROUPS AND ACTIVITIES. NO S/S OF DISTRESS OR PAIN NOTED.
[2017-06-19 06:00] LABS: BASO % 0.7 % (0.0-1.0); EOS # 0.2 10*3/uL (0.0-0.4); EOS % 3.9 % (1.0-4.0); HEMATOCRIT 38.6 % (42.0-52.0); HEMOGLOBIN 13.3 g/dl (14.0-18.0); LYMPH # 1.5 10*3/uL (1.3-4.4); LYMPH % 27.4 % (27.0-41.0); MEAN CELL VOLUME 97.2 fl (80.0-94.0); MEAN CORPUSCULAR HGB 33.5 pg (27.0-31.0); MEAN CORPUSCULAR HGB CONC 34.5 g/dl (33.0-37.0); MEAN PLATELET VOLUME 9.1 fl (9.6-12.3); MONO # 0.9 10*3/uL (0.1-1.0); MONO % 16.5 % (3.0-9.0); NEUT # 2.9 10*3/uL (2.3-7.9); NEUT % 51.1 % (47.0-73.0); PLATELET COUNT AUTOMATED 206 10*3/uL (130-400); RED BLOOD COUNT 3.97 10*6/uL (4.50-5.90); RED CELL DISTRI WIDTH 12.3 % (0-14.5); WHITE BLOOD COUNT 5.6 10*3/uL (4.8-10.8)
[2017-06-19 07:56] VITALS: BP 143/67
--- NOTE | 2017-06-19 09:00 | NUR ---
DEMOND spoke with Alexandria of [facility]. Referral had been sent to this facility. Alexandria was concerned that pt. may need IM medications upon d/c but DEMOND clarified that Dr. Encinas is hoping that pt. will "clear" by Thursday and not need IM upon d/c. Alexandria states she will call Thursday am and come down and assess pt. for their program if pt. psychosis has "cleared".
--- NOTE | 2017-06-19 09:06 | NUR ---
DEMOND called the Adm. Dir. at [facility] [address], Prabha. The channel lip stiffener insoles took DEMOND info. and said she will have Prabha Josue call DEMOND when she gets in shortly.
--- NOTE | 2017-06-19 10:00 | NUR ---
PT RESTING QUIETLY IN BED WITH EYES CLOSED DURING MORNING MED PASS. EASILY AROUSABLE VIA VERBAL/TACTILE STIMULI. PT ALERT AND ORIENTED TO SELF ONLY, CONFUSED IN OTHER AREAS. SEVERE ST/LT MEMORY DEFICITS NOTED. RESPIRATIONS EASY ON ROOM AIR. MOOD IS ANGRY/IRRITABLE. SPEECH IS WNL AND COHERENT, ABLE TO MAKE NEEDS KNOWN WITHOUT DIFFICULTY. PT DENIES SI/HI. PT DENIES HALLUCINATIONS, NO RESPONSE TO INTERNAL STIMULI NOTED. PT VOICES VARIOUS PARANOID DELUSIONS, STATED "I THINK YOU ARE ALL OUT TO GET ME." "THESE PEOPLE HERE ARE AGAINST ME. THEY'VE TWISTED MY MIND ALL AROUND AND ARE PLAYING PRANKS ON ME." PT MEDICATION COMPLIANT WITHOUT DIFFICULTY. PT USES WALKER FOR AMBULATION ASSISTANCE, INDEPENDENT WITH ADLS, CONTINENT OF BOWEL AND BLADDER. FEEDS SELF. DISPLAYS GOOD APPETITE WITH ADEQUATE FLUID INTAKE NOTED. NO DISTRESS NOTED. Q15 MIN MONITORING CONTINUES, REFER TO [facility] FLOWSHEET FOR SPECIFIC MONITORING.
--- NOTE | 2017-06-19 10:03 | NUR ---
PHYSICAL THERAPY PATIENT REFUSED THERAPY THIS MORNING. WILL CHECK BACK LATER. VICENTE PAL PTA
--- NOTE | 2017-06-19 11:03 | NUR ---
MARTY RUST OF [facility] HERE TO SEE PT AT THIS TIME, PT C/O 'STIFFNESS' AND PAIN TO RIGHT SHOULDER, ANGUS STATES SHE WILL OBTAIN XRAY.
--- NOTE | 2017-06-19 12:16 | NUR ---
DEMOND rec'd call back from Aminah of [facility] [address] who states that the [facility] care Unit at this time is full. She states that she does not foresee an opening in the near future. DEMOND will let pt po know.
--- NOTE | 2017-06-19 12:49 | NUR ---
06/18/17 Afternoon [place] & Reminiscing Patient did not attend group. Patient was in the room when I came in to start group and was upset bc he wanted to watch the news. The TV is typically turned off during group and i explained this to him. Patient was still agitated and refused to stay for group and left the room
--- NOTE | 2017-06-19 13:26 | NUR ---
DEMOND attempted to engage pt. pt. fixatated on his plane ticket to [place]. pt. could not rememeber g/'s name that Dr. lauren asked DEMOND to try and get from pt. pt alert and oriented x 2.
--- NOTE | 2017-06-19 13:28 | NUR ---
PHYSICAL THERAPY Patient refused treatment saying he wants to stay in bed today. VICENTE PAL PTA
--- NOTE | 2017-06-19 13:48 | NUR ---
Goals,Exercise,& Painting Patient did not attend group this morning.Patient was in bed and was encourage to come to group. Patient refused telling This AC to "Leave me alone please. I dont know why you are doing this to me. Please just leave." Notified nurse
--- NOTE | 2017-06-19 14:43 | NUR ---
PT SITTING IN DINING ROOM WITH PEERS AND STAFF, PARTICIPATING IN GROUP CRAFT. NO DISTRESS.
--- NOTE | 2017-06-19 18:52 | NUR ---
SHIFT CHART CHECK COMPLETED.
[2017-06-19 20:00] VITALS: BP 127/82
--- NOTE | 2017-06-20 01:53 | NUR ---
PT MEDICATION COMPLIANT. FALL PRECAUTIONS AND Q15 MINUTE SAFETY CHECKS MAINTAINED. A&O X2. CONFUSION NOTED. NO HALLUCINATIONS. PST IS PARANOID SOMEONE IS OUT TO GET HIM AND TAKE HIS TICKET TO [place]. CALM AND INTERACTIVE AT TIMES WITH STAFF AND PEERS. MEDICATION COMPLIANT. NO RESULTS NOTED AT THIS TIME FOR RIGHT SHOULDER XRAY. PLAN IS TO CONTINUE CURRENT TREATMENT PLAN AND ENCOURAGE PARTICIPATION IN GROUPS AND ACTIVITIES. NO S/S OF DISTRESS NOTED. NO C/O PAIN. SEE [facility] FLOWSHEET FOR SPECIFIC MONITORING.
--- NOTE | 2017-06-20 02:07 | NUR ---
24 HR chart check completed.
--- NOTE | 2017-06-20 05:36 | NUR ---
PT SLEPT GREATER THAN 8 HOURS THIS SHIFT. NO S/S OF DISTRESS. NO C/O PAIN. SEE [facility] FLOWSHEET FOR SPECIFIC MONITORING.
[2017-06-20 08:06] VITALS: BP 170/69
--- NOTE | 2017-06-20 12:39 | NUR ---
Goals, reminiscing and crafts Patient present in activity room during group however unable to arouse to participate in group. Patient quietly slept through entire group.
--- NOTE | 2017-06-20 16:01 | NUR ---
Chris is compliant with prescribed medications. On 1:1 interaction with staff Chris voiced some paranoid ideas regarding a "gang" trying to attack him. He states, "I think that's why they put me here just to keep me safe." States that he has no need to "be in a nut house and I need to get out of here." Limited understanding of current issues. Confusion is present and he has required some direction from staff @ times. Fall precautions continue and have been maintained. He requires reminding to request assistance as needed, as well as reminders to use his walker when ambulating. Dr. Ramírez in to see him today. Risperdal Consta injection 12.5 mg administered IM per policy for IM injections on this date in left deltoid. Refer to [facility] flowsheet for specific monitoring throughout this day. Compliant with medications and did ask appropriate questions during medication administration time, however, retention of information provided is questionable.
[2017-06-20 19:57] VITALS: BP 135/62
--- NOTE | 2017-06-20 23:14 | NUR ---
24 HR chart check completed.
--- NOTE | 2017-06-20 23:22 | NUR ---
PT HAS BEEN AMBULATING ON THE UNIT WITH ASSISTANCE OF A WALKER. HAS REQUIRED REMINDERS TO USE HIS WALKER HE IS FORGETFUL & CONFUSED. SHORT TERM MEMORY DEFICITS NOTED. PT HAS FREQUENTLY ASKED WHAT TIME BREAKFAST IS SERVED. COMPLIANT TAKING HS MEDICATIONS WHOLE & EATING HS SNACK.
--- NOTE | 2017-06-21 06:58 | NUR ---
PT HAS BEEN OBSERVED ON Q 15 MIN CHECKS & HAS SLEPT QUIETLY THROUGOUT THE SHIFT PAST 2144.
[2017-06-21 07:52] VITALS: BP 160/81
--- NOTE | 2017-06-21 08:36 | NUR ---
MANUAL BP 198/100 HR 80, PT ASYMPTOMATIC. CALL PLACED TO [phone], SPOKE TO DR. TIPTON, MADE AWARE OF THE ABOVE, DR. TIPTON STATES TO GIVE SCHEDULED LISINOPRIL 20MG, RECHECK BP MANUALLY IN 2 HOURS.
--- NOTE | 2017-06-21 10:37 | NUR ---
PT IS ALERT WITH CONFUSION. ST/LT MEMORY DEFICITS NOTED. RESPIRATIONS EASY AND EVEN ON ROOM AIR. MOOD IS LABILE, AFFECT IS SUSPICIOUS AT TIMES. PT DENIES SI/HI. PT DENIES HALLUCINATIONS, NO RESPONSE TO INTERNAL STIMULI NOTED. PT CONTINUES TO APPEAR PARANOID, SUSPICIOUS OF STAFF, MADE THE STATEMENT "I'M AFRIAD OF WHAT YOU PEOPLE ARE TRYING TO DO TO ME." REALITY PRESENTED, EMOTIONAL SUPPORT PROVIDED, ASSURED PT HE IS IN A SAFE PLACE AND WE ARE HERE TO HELP. PT LATER STATED "YOU GIRLS ARE ALL WONDERFUL. THANK YOU FOR ALL THE HELP." PT IS MEDICATION COMPLIANT WITHOUT DIFFICULTY. AMBULATORY, GAIT STEADY WITH ASSISTANCE OF WHEELED WALKER. CONTINENT OF BOWEL AND BLADDER. DISPLAYS GOOD APPETITE WITH ADEQUATE FLUID INTAKE. WILL CONTINUE TO PROVIDE REALITY ORIENTATION NEEDED. NO DISTRESS NOTED. Q15 MIN MONITORING CONTINUES. REFER TO [facility] FLOWSHEET FOR SPECIFIC MONITORING.
[2017-06-21 10:59] VITALS: BP 156/84
--- NOTE | 2017-06-21 10:59 | NUR ---
BLOOD PRESSURE RECHECKED MANUALLY AT THIS TIME, RESULT 156/84
--- NOTE | 2017-06-21 15:30 | NUR ---
DR. HENNESSY ON UNIT, MADE AWARE OF BP RECHECK THIS AM. NO NEW ORDERS RECIEVED.
--- NOTE | 2017-06-21 17:53 | NUR ---
SHIFT CHART CHECK COMPLETED.
[2017-06-21 20:15] VITALS: BP 138/64
--- NOTE | 2017-06-22 00:04 | NUR ---
24 HR chart check completed.
--- NOTE | 2017-06-22 00:30 | NUR ---
PT HAS HAD A LABILE MOOD. PLEASANT AT TIMES & THEN BECOMES IRRITABLE. HAS STATED THAT HE IS LOOKING FOR HIS WATCH BECAUSE HE HAS TO DO HIS EXERCISES. ALERT TO PERSON. COMPLIANT WITH HS MEDICATIONS & TAKES THEM WHOLE. AMBULATES FREQUENTLY WITH ASSISTANCE OF A WALKER & HAS REQUIRED REMINDERS TO USE HIS WALKER.
--- NOTE | 2017-06-22 06:29 | NUR ---
PT HAS BEEN OBSERVED ON Q 15 MIN CHECKS & HAS SLEPT QUIETLY THROUGHOUT THE SHIFT PAST 2144.
[2017-06-22 07:57] VITALS: BP 140/69
--- NOTE | 2017-06-22 08:00 | NUR ---
[facility] of the [facility]-denied admission, DEMOND sent out referrals for [facility] and [facility] per MARIA GUADALUPE..
--- NOTE | 2017-06-22 09:19 | NUR ---
06/21/17 Afternoon Group Patient was in attendence during group but refused to participate. Patient was brought a newspaper during visitation from his hometown. Patient stated he just wanted to sit there and read it. There were no issues with patient during group
--- NOTE | 2017-06-22 10:00 | NUR ---
[facility] HERE TO SEE PT AT THIS TIME.
--- NOTE | 2017-06-22 10:31 | NUR ---
PHYSICAL THERAPY Jamin was seen this AM 1:1 for his therapy session. Pt doing much bettert then all last week, did not refuse this therapy gait. All transfers were CGA X 1. Gait with wheeled walker total 240' X 1, CG X 1, no LOB, verbal cueing for gait, walker safety. Working in gait balance with gait backwards, right and left side stepping, 360 turn with MIN A X 1, cueing for each, this was a good day for him. JAMIN ENNIS CORN GRINDER.
--- NOTE | 2017-06-22 10:57 | NUR ---
DEMOND faxed Dr. Kelly evaluation to [facility] to set up financial paperwork and secure bed for pt. at that facility per poa's request so she does not have to drive down and pickle sorter paperwork then go to [facility].
--- NOTE | 2017-06-22 11:00 | NUR ---
PT IS ALERT AND ORIENTED TO PERSON, CONFUSED IN OTHER AREAS. ST/LT MEMORY DEFICITS NOTED. RESPIRATIONS EASY AND EVEN ON ROOM AIR. MOOD REMAINS LABILE, AFFECT IS FLAT. PT EASILY REDIRECTED. SPEECH IS WNL AND COHERENT, ABLE TO MAKE NEEDS KNOWN WITHOUT DIFFICULTY. PT DENIES SI/HI, INTENT OR PLAN. PT DENIES HALLUCINATIONS, NO RESPONSE TO INTERNAL STIMULI. NO PARANOIA/DELUSIONS NOTED. MED COMPLIANT WITHOUT DIFFICULTY. PT IS AMBULATORY, STEADY GAIT W/ ASSIST OF WHEELED WALKER. PT INDEPENDENT WITH ADLS, CONTINENT OF BOWEL AND BLADDER. FEEDS SELF WITH GOOD APPETITE AND ADEQUATE FLUID INTAKE. NO DISTRESS NOTED. Q15 MIN MONITORING CONTINUES, REFER TO [facility] FLOWSHEET FOR SPECIFIC MONITORING.
--- NOTE | 2017-06-22 11:10 | NUR ---
DEMOND abdi'd call from [facility] [place] [facility] [place] to inquire about pt. They will wait a few days yet to see if pt. clears more before they come down to assess for their program.
--- NOTE | 2017-06-22 11:51 | NUR ---
PATIENT SEEN 1:1 25 MINUTES OT THIS DATE. PATIENT IDENTIFIED BY NAME AND DATE OF . PATIENT COMPLETED FUNCTIONAL XFERS USE FWW THROUGHOUT FACILTY AND ROOM SBA WITH PATIENT REQUIRING VERBAL CUES SAFETY USE FWW SECONDARY DECREASE SAFETY AWARENESS. PATIENT COMPLETED DYNAMIC STANDING ACTIVITY REACHING FOR ITEMS VARIOUS LEVELS CGA, PNF DIAGONAL PATTERNS WITH MODERATE DIFFICULTY CGA/MIN A, AND SINGLE LEG STANCE USE CHAIR SUPPORT WHILE REACHING CGA X 20 REPS EACH SIDE. PATIENT DEMONSTRATED GOOD ACTIVTY TOLERANCE THIS DATE. PATIENT EASILY DISTRACTED WITH VERBAL CUES REQUIRED REGAIN ATTENTION TO TASK. PATIENT VERBALIZED THAT HE FELT HE RECEIVED A GOOD WORK OUT AND THANKED THIS CM THIS DATE. ZOILA CM/Shantal
--- NOTE | 2017-06-22 13:11 | NUR ---
Finishing Ornaments for the tree & Conversation. Patient did not attend group. Encouraged patient to join group but patient refused saying "If I would of had had a ,she would of taught me all these things.Then i would make them for her." Patient did not attend group
--- NOTE | 2017-06-22 15:20 | NUR ---
SW rec'd message from Unit Coordiantor that [facility] will be on unit tomorrow to assess pt. for appropriateness for their facility.
[2017-06-22 20:00] VITALS: BP 131/71
--- NOTE | 2017-06-22 20:48 | NUR ---
AMBULATING UP AND DOWN FUNK WITH WALKER. CURRENTLY WATCHING FOOTBALL GAME. DISCUSSED HIS DAY WHICH HE SAYS "WAS GOOD BUT I AM BORED". DISCUSSED ACTIVITIES HE MAYBE INTERESTED IN BUT WANTS TO WATCH FOOTBALL. GLASSES ON AND RETAINER IN MOUTH
--- NOTE | 2017-06-23 04:28 | NUR ---
24 HR chart check completed.
[2017-06-23 07:51] VITALS: BP 148/84
--- NOTE | 2017-06-23 09:11 | NUR ---
Ship Yard Electrical Person took call from [facility], facility declined referral.SW notiofied by [employer] Electrical Person.
--- NOTE | 2017-06-23 09:17 | NUR ---
06/22/17 Afternoon Wrap Present Patient did attend group. Originally patient wanted to just watch,but then decided to participate. Patient said he "wanted to learn to wrap gifts so I can do it at home." Patient did very well and insisted in only verbal help when needed. there were no issues during group
--- NOTE | 2017-06-23 10:05 | NUR ---
PATIENT SEEN 1:1 OT 25 MINUTES THIS DATE. PATIENT IDENTIFIED BY NAME AND DATE OF . PATIENT COMPLETED FUNCTIONAL AMBUALTION IN HALLWAY AND IN ROOM USE FWW SUPERVISION AND MINIMAL VERBAL CUES SAFETY USE FWW. PATIENT COMPLETED BUE STR. SEATED/STANDING USE ORANGE T BAND ALL PLANES X 10 REPS TOLERANCE WITH LIMITATIONS NOTE R SHOULDER WITH MOD VERBAL CUES TECHNIQUE AND FORM. PATIENT DEMONSTRATED GOOD PARTICIPATION THIS DATE. ZOILA CM/Shantal
--- NOTE | 2017-06-23 10:37 | NUR ---
Ivania spoke with Renetta at [facility] [place], they will not be able to come down and assess pt. afterall due to pt. having IM and it has not been two weeks since the last IM shot.
--- NOTE | 2017-06-23 10:40 | NUR ---
[facility] ON UNIT TO SEE PT AT THIS TIME.
--- NOTE | 2017-06-23 10:45 | NUR ---
PT MEETING WITH MARCOS FROM [facility] AT THIS TIME. DEMOND JULIAN AWARE.
--- NOTE | 2017-06-23 10:54 | NUR ---
PHYSICAL THERAPY Jamin seen this AM 1:1 and is improving with his therapy. All transfer independent. Gait total 340' X 1, supervision X 1, no wheeled walker, no LOB. Working in gait balance with gait backwards, right and left side stepping, 360 turn with verbal cueing for each with just supervision no LOB. Pt back in his room. JAMIN ENNIS DIGITAL MARKETING APPRENTICE.
--- NOTE | 2017-06-23 11:10 | NUR ---
PT IS ALERT AND ORIENTED TO PERSON, APPROXIMATE PLAN AND TIME. PERIODS OF CONFUSION NOTED. ST/LT MEMORY DEFICITS NOTED. RESPIRATIONS EASY ON ROOM AIR. MOOD IS STABLE, AFFECT IS APPROPRIATE. SPEECH IS WNL AND COHERENT, ABLE TO MAKE NEEDS KNOWN WITHOUT DIFFICULTY. PT DENIES SI/HI, INTENT OR PLAN. PT DENIES HALLUCINATIONS, NO RESPONSE TO INTERNAL STIMULI NOTED. NO PARANOIA/DELUSIONS NOTED. MEDICATION COMPLIANT WITHOUT DIFFICULTY. PT IS AMBULATORY, GAIT STEADY WITH WHEELED WALKER. INDEPENDENT WITH ADLS. CONTINENT OF BOWEL AND BLADDER. FEEDS SELF, DISPLAYS GOOD APPETITE WITH ADEQUATE FLUID INTAKE. NO DISTRESS NOTED. Q15 MIN MONITORING CONTINUES, REFER TO [facility] FLOWSHEET FOR SPECIFIC MONITORING.
--- NOTE | 2017-06-23 13:32 | NUR ---
Goals,Exercise & Trivia Patient did attend group for the first 10 minutes or so. Patient then send he needed to use the bathroom. When asked if he would like to make his daily goal first he refused. When asked if patient was coming back to join group,patient stated "I dont know." There were no issues while patient was in attendence
--- NOTE | 2017-06-23 14:22 | NUR ---
DEMOND met with Juany from [place] in regards to her assmt. of pt. Juany states she is going to recommend pt. for program but the Adm. Dir and Admin. have to give the greenlight. Gloria, the Green Building Design Specialist to call DEMOND with final approval.
--- NOTE | 2017-06-23 18:01 | NUR ---
SHIFT CHART CHECK COMPLETED.
[2017-06-23 20:28] VITALS: BP 153/71
--- NOTE | 2017-06-23 22:41 | NUR ---
HAS BEEN AMBULATING BETWEEN HIS ROOM AND THE DININGROOM. PREOCCUPIED WITH GETTING UP IN THE MORNING AND EATING BREAKFAST. SEVERE SHORT TERM MEMORY DEFICIT NOTED DUE TO FACT THAT HIS QUESTION IS ANSWERED, HE WALKS TO DININGROOM AND IMMEDIATLLY RETURNS AND REPEATS REQUEST EMOTIONAL SUPPORT PROVIDED. WILL MONITOR
--- NOTE | 2017-06-24 05:37 | NUR ---
SLEPT INTERMITTENTLY PAST 0100AM
--- NOTE | 2017-06-24 05:39 | NUR ---
24 HR chart check completed.
[2017-06-24 07:54] VITALS: BP 134/66
[2017-06-24] MEDS ORDERED: EXELON13.3 MG/21 T (10:18)
[2017-06-24] MEDS ORDERED: RISPERDAL CON12.5 MG IM (10:18)
[2017-06-24] MEDS ORDERED: MEMANTINE HCL10 MG PO (10:18)
[2017-06-24] MEDS ORDERED: NAMENDA-5 PO (10:18)
[2017-06-24] MEDS ORDERED: RISPERIDONE M-TA1 MG BC (10:18)
--- NOTE | 2017-06-24 13:50 | NUR ---
06/23/17 Afternoon Puzzles Patient did not attend group. Patient was encouraged to come to group but patient continued to refuse.
--- NOTE | 2017-06-24 14:44 | NUR ---
PHYSICAL THERAPY Patient seen this pm 1:1 for therapy and was sitting EOB following Yoga ex. Pateint reports no c/o's pain and is Independent with all transfers. Patient ambulated 200' x 2 with use of wh walker, SBA, demonstrating slight forward lean. Patient able to walk backwards with no LOB and returned to EOB sit voicing no new c/o's. Patient remained in his room following 14 minute treatment and will continue as tolerated to improve safe, functional mobility. Braulio Hall, REPAIR SERVICE CLERK
--- NOTE | 2017-06-24 14:49 | NUR ---
Goals, Exercise,& Games Patient did not attend group this morning. Patient refused.Patient was in the quiet room stated he was waiting to speak to the Dr. Patient refused to come to group and wait for the .
--- NOTE | 2017-06-24 15:25 | NUR ---
Dr. Encinas will need to sign [facility] paperwork and it will need faxed to [facility] for final approval per Gloria Lucero. pt. transport to facility is thru [facility]. paperwork already faxed to [facility] but send copy with them also. pt to be d/c'ed at noon.
[2017-06-24 20:00] VITALS: BP 119/60
--- NOTE | 2017-06-24 21:51 | NUR ---
INTRACTIVE WITH PEERS AND STAFF. DECLINES ANY PROBLEMS TODAY. NEEDS REORIENTED CONTINUOUSLY TO TIME, PLACE AND UNIT TIMES. VOICES NO DELUSIONS OR PARANOIA OF PEOPLE TRYING TO HURT HIM. ATTENTION SPAN SHORT. WILL INTRACT WITH HIM MUCH HE ALLOWS
--- NOTE | 2017-06-25 03:33 | NUR ---
24 HR chart check completed.
--- NOTE | 2017-06-25 10:00 | NUR ---
DR. BRONSON NOTIFIED OF PATIENT BEING DISCHARGED TO DAY AND TO LET DR. BILL BONNER ABOUT DISCHARGE.
--- NOTE | 2017-06-25 10:08 | NUR ---
OT DAILY NOTE OT ATTEMPTED THIS AM. PT REFUSED STATING THAT HE WAS GETTING READY TO LEAVE. CM VERIFIED INFORMATION THROUGH NURSING AND PT BEING D/C. TOI SCHWARTZ/Shantal
[2017-06-25 11:14] VITALS: BP 143/77
--- NOTE | 2017-06-25 11:17 | NUR ---
SPOKE TO REGARDING D/C MEDS NEEDING VERIFIED. REPORTS THAT HE WILL "GET ON IT RIGHT AWAY."
--- NOTE | 2017-06-25 11:43 | NUR ---
PHYSICAL THERAPY Patient was sitting in bedside chair upon therapist arrival and seen 1:1 for therapy. Patient reports no new c/o's and transfers Independent with all transfers. Patient ambulates with use of wh walker, 250'x 1, demonstrating increased velocity, SBA with no LOB. Patient returned to bedside chair performing seated AROM therex, B LE, all planes x 15 reps each to improve furnctional mobiltiy for total treatment time of 18 minutes. Patient remained in bedside chair and will continue per POC as tolerated. Braulio Hall, DOBIE MAN
--- NOTE | 2017-06-25 12:19 | NUR ---
SPOKE WITH NURSE FROM [facility]. GAVE NURSE TO NURSE REPORT FOR D/C. VERBALIZED UNDERSTANDING OF D/C INSTRUCTIONS.
--- NOTE | 2017-06-25 12:30 | NUR ---
PT LEFT VIA EMS STAFF TO [facility]. PT COOPERATIVE, PLEASANT, ORIENTED TO NAME, PLACE, SITUATION WITH OCCASIONAL ST DEFICITS. PT BELONGINGS SENT ALONG. NURSE TO NURSE COMPLETED.
--- NOTE | 2017-06-25 12:38 | NUR ---
Ivania spoke with Robson Hernandez on the unit this am to assure that Dr. Encinas signs the [facility] [place] paperwork for pt. admission. David states that it was signed and faxed to [place]. IVANIA spoke with Gloria Lucero at [facility] in regards to the paperwork and she gave the "greenlight" for pt's admission. IVANIA notified pt and williams (per pc) of d/c. pt williams states she was told by facility to wait a day before visiting to give him a chance to "settle" in. pt williams thanked the Ceiling Installer for all her help and education in regards to Alzheimer dementia. pt d/c'ed via [facility] to [facility] at 1:35pm today. pt still confused but states "I am ready to go today, wasn't yesterday.
--- NOTE | 2017-06-30 14:32 | NUR ---
OCCUPATIONAL THERAPY CO-SIGN I approve of the Occupational Therapy notes written above. ELISHA BARBOZA
== END 2017-06-25 12:35 | disposition home or self-care (01) | DRG 885 ==
LOC: 3N 10:42
PROVIDERS: Family Medicine; ADMIT Psychiatry & Neurology Psychiatry
DX: F23 Brief psychotic disorder (principal); R31.9 Hematuria, unspecified; G30.9 Alzheimer's disease, unspecified; F02.80 Dementia in other diseases classified elsewhere, unspecified severity, without behavioral disturbance, psychotic disturbance, mood disturbance, and anxiety; R82.71 Bacteriuria; D72.810 Lymphocytopenia; E78.5 Hyperlipidemia, unspecified; I10 Essential (primary) hypertension; L71.9 Rosacea, unspecified; R71.8 Other abnormality of red blood cells; R74.0 Nonspecific elevation of levels of transaminase and lactic acid dehydrogenase [LDH]; M15.9 Polyosteoarthritis, unspecified; I25.10 Atherosclerotic heart disease of native coronary artery without angina pectoris; Z85.46 Personal history of malignant neoplasm of prostate; Z88.2 Allergy status to sulfonamides; Z80.0 Family history of malignant neoplasm of digestive organs; Z84.89 Family history of other specified conditions; Z79.82 Long term (current) use of aspirin; Z79.899 Other long term (current) drug therapy